=== PATIENT | male | born 1965 | race Two or more races ===

== ENCOUNTER → 2017-11-23 | Emergency (ER) | payer OTHER ==
[~2017-11-23] VITALS: Ht 172.7 cm; Wt 98.9 kg
[~2017-11-23] MED LIST: COZAAR50 MG; NORVASC5 MG
== END | disposition home or self-care (01) ==
LOC: ER 09:36
DX: J00 Acute nasopharyngitis [common cold] (principal)

== ENCOUNTER 2018-12-15 16:59 | Emergency (ER) | payer OTHER ==
[~2018-12-15] VITALS: Ht 172.7 cm; Wt 99.8 kg
[2018-12-15] MEDS ORDERED: GLYBURIDE2.5 MG (17:15)
[2018-12-15] MEDS ORDERED: COZAAR25 MG (17:15)
== END 2018-12-15 21:10 | disposition home or self-care (01) ==
LOC: ER 16:59
DX: L08.89 Other specified local infections of the skin and subcutaneous tissue (principal)

== ENCOUNTER 2019-08-12 17:00 | Emergency (ER) | payer OTHER ==
[~2019-08-12] VITALS: Ht 162.6 cm; Wt 101.2 kg
[~2019-08-12 17:00] MED LIST changes: +COZAAR25 MG; +GLYBURIDE2.5 MG
== END 2019-08-13 02:15 | disposition home or self-care (01) ==
LOC: ER 17:00
DX: K52.9 Noninfective gastroenteritis and colitis, unspecified (principal); E86.0 Dehydration

== ENCOUNTER 2023-12-28 13:54 | Emergency (ER) | payer OTHER ==
[~2023-12-28] VITALS: Ht 154.9 cm; Wt 97.5 kg
[2023-12-28] MEDS ORDERED: KETOROLAC TROMETHAMINE 30 MG VIAL IM STA (15:49)
[2023-12-28] MEDS ORDERED: NAPROXEN500 MG PO (18:00)
== END 2023-12-28 18:12 | disposition home or self-care (01) ==
LOC: ER 13:54
DX: S29.011A Strain of muscle and tendon of front wall of thorax, initial encounter (principal); X58.XXXA Exposure to other specified factors, initial encounter; Y93.89 Activity, other specified; Y92.89 Other specified places as the place of occurrence of the external cause; Y99.8 Other external cause status; R53.81 Other malaise; I10 Essential (primary) hypertension; E11.9 Type 2 diabetes mellitus without complications; Z88.0 Allergy status to penicillin

== ENCOUNTER 2024-07-22 11:28 | Inpatient (IN) | payer OTHER ==
[~2024-07-22] VITALS: Ht 172.7 cm; Wt 97.5 kg
[~2024-07-22 11:28] MED LIST changes: +LIPITOR40 M1; +NAPROXEN500 MG PO
[2024-07-22] MEDS ORDERED: FUROsemide 40 MG/4 ML VIAL IV ONE (12:15)
[2024-07-22 12:19] LABS: HEMATOCRIT 33.6 % (39.0-48.0); HEMOGLOBIN 10.9 g/dL (13-16.00); MEAN CORPUSCULAR HEMOGLOBIN 26.4 pg (27.00-32.0); MEAN CORPUSCULAR HGB CONC 32.5 g/dl (32.0-36.0); RED BLOOD COUNT 4.15 M/uL (4.00-6.00)
[2024-07-22 12:21] LABS: PLATELET COUNT 63 K/uL (150-450); RED CELL DISTRIBUTION WIDTH 19.1 % (11.5-14.5)
[2024-07-22 12:29] LABS: INR 1.13; PARTIAL THROMBOPLASTIN TIME 26.1 SECONDS (22.0-34.0); PROTHROMBIN TIME 12.2 SECONDS (9.0-11.5)
[2024-07-22 12:57] LABS: ALBUMIN 3.3 gm/dL (3.4-5.0); BILIRUBIN TOTAL 0.53 mg/dL (0.3-1.2); CALCIUM 8.5 mg/dL (8.5-10.1); CREATININE SERUM 1.11 mg/dL (0.70-1.30); GFR 67.57; GLOBULINA 2.9 G/DL (2.4-3.5); POTASSIUM 4.07 mEq/L (3.5-5.1); TOTAL PROTEIN 6.2 gm/dL (6.4-8.2)
[2024-07-22 13:32] LABS: URINE APPEARANCE Clear; URINE BILIRRUBIN Negative (NEGATIVE); URINE BLOOD Negative; URINE COLOR Yellow; URINE GLUCOSE Negative (NEGATIVE); URINE KETONE Negative (NEGATIVE); URINE LEUKOCYTE Negative; URINE NITRATE Negative
[2024-07-22 13:37] LABS: URINE WBC 22.3 uL (0.0-23.2)
[2024-07-22 13:45] LABS: URINE CAST 0.15 uL (0.0-1.40); URINE EPITHELIAL CELLS 0.7 uL (0.0-38.8); URINE PROTEIN 100 (NEGATIVE); URINE RBC 1.9 uL (0.0-20.8)
[2024-07-22] MEDS ORDERED: INSULIN LISPRO 1,000 UNIT/10 ML UNITS SUBCUTANEO PRN (18:15)
[2024-07-22] MEDS ORDERED: NITROGLYCERIN IN 5 % DEXTROSE 50 MG/250 ML BOTTLE IV SCH (18:15)
[2024-07-22] MEDS ORDERED: DEXTROSE 50 % IN WATER 0.5 G/ML DISP.SYRIN IV PRN (18:15)
[2024-07-22] MEDS ORDERED: NITROGLYCERIN IN 5 % DEXTROSE 50 MG/250 ML BOTTLE IV ONE (19:40)
[2024-07-22] MEDS ORDERED: FUROsemide 20 MG/2 ML VIAL ONE (20:44)
[2024-07-22] MEDS ORDERED: FUROsemide 20 MG/2 ML VIAL IV SCH ×2 (21:00)
[2024-07-22 21:52] VITALS: O2SAT 97
[2024-07-23] VITALS (9 sets, daily range): BP systolic 125–151; BP diastolic 86–100; O2SAT 93–100
[2024-07-23] MEDS ORDERED: TAMSULOSIN HCL 0.4 MG CAP PO SCH (09:00)
[2024-07-23] MEDS ORDERED: SPIRONOLACTONE 25 MG TABLET PO SCH (09:00)
[2024-07-23] MEDS ORDERED: LOSARTAN POTASSIUM 25 MG TABLET PO SCH (09:00)
[2024-07-23] MEDS ORDERED: ATORVASTATIN CALCIUM 40 MG TABLET PO SCH (09:00)
[2024-07-23] MEDS ORDERED: AMLODIPINE BESYLATE 5 MG TABLET PO SCH (09:00)
[2024-07-23] MEDS ORDERED: ASPIRIN 81 MG TABLET.EC PO SCH (09:00)
[2024-07-23] MEDS ORDERED: AMIODARONE HCL 200 MG TABLET PO SCH (09:00)
[2024-07-23] MEDS ORDERED: FAMOtidine 20 MG TABLET PO SCH (09:00)
[2024-07-23 10:52] LABS: HEMATOCRIT 34.7 % (39.0-48.0); HEMOGLOBIN 11.2 g/dL (13-16.00); MEAN CELL VOLUME 81.6 fL (80.0-100.00); MEAN CORPUSCULAR HEMOGLOBIN 26.3 pg (27.00-32.0); MEAN CORPUSCULAR HGB CONC 32.2 g/dl (32.0-36.0); PLATELET COUNT 60 K/uL (150-450); RED BLOOD COUNT 4.25 M/uL (4.00-6.00); RED CELL DISTRIBUTION WIDTH 19.1 % (11.5-14.5)
[2024-07-23] MEDS ORDERED: SPIRONOLACTONE 25 MG TABLET PO NR (11:00)
[2024-07-23 11:13] LABS: ALBUMIN 3.3 gm/dL (3.4-5.0); BILIRUBIN TOTAL 0.59 mg/dL (0.3-1.2); CALCIUM 8.5 mg/dL (8.5-10.1); CREATININE SERUM 1.02 mg/dL (0.70-1.30); GFR 74.5; GLOBULINA 2.8 G/DL (2.4-3.5); POTASSIUM 4.06 mEq/L (3.5-5.1); TOTAL PROTEIN 6.1 gm/dL (6.4-8.2)
[2024-07-23] MEDS ORDERED: FUROsemide 20 MG/2 ML VIAL IV SCH (17:00)
[2024-07-24] VITALS (8 sets, daily range): BP systolic 132–144; BP diastolic 85–88; O2SAT 93–98
[2024-07-24] MEDS ORDERED: CLOPIDOGREL BISULFATE 75 MG TABLET PO SCH (09:00)
[2024-07-24] MEDS ORDERED: LOSARTAN POTASSIUM 50 MG TABLET PO SCH (09:00)
[2024-07-24] MEDS ORDERED: AMIODARONE HCL 200 MG TABLET PO SCH (09:00)
[2024-07-24] MEDS ORDERED: AMINO ACIDS 1 EACH TABLET PO SCH (17:00)
[2024-07-25] VITALS (8 sets, daily range): BP systolic 132–146; BP diastolic 82–88; O2SAT 96–100
[2024-07-26] VITALS (8 sets, daily range): BP systolic 107–150; BP diastolic 70–92; O2SAT 90–100
[2024-07-26 08:47] LABS: HEMATOCRIT 30.4 % (39.0-48.0); HEMOGLOBIN 10.2 g/dL (13-16.00); MEAN CELL VOLUME 80.6 fL (80.0-100.00); MEAN CORPUSCULAR HEMOGLOBIN 27.1 pg (27.00-32.0); MEAN CORPUSCULAR HGB CONC 33.6 g/dl (32.0-36.0); RED BLOOD COUNT 3.77 M/uL (4.00-6.00)
[2024-07-26 09:05] LABS: PLATELET COUNT 50 K/uL (150-450)
[2024-07-26 09:22] LABS: BILIRUBIN TOTAL 0.64 mg/dL (0.3-1.2); CALCIUM 8.4 mg/dL (8.5-10.1); CREATININE SERUM 0.98 mg/dL (0.70-1.30); GFR 78.02; GLOBULINA 2.6 G/DL (2.4-3.5); POTASSIUM 4.04 mEq/L (3.5-5.1); TOTAL PROTEIN 5.6 gm/dL (6.4-8.2)
== END 2024-07-26 17:52 | disposition home or self-care (01) | DRG 291 ==
LOC: ER 11:29 → MEDJ 18:39
PROVIDERS: General Practice; ADMIT Internal Medicine; ATTEND Internal Medicine
PROC: 4A12X4Z Monitoring of Cardiac Electrical Activity, External Approach (ICD-10-PCS; principal; 2024-07-22)
PROC: B246ZZZ Ultrasonography of Right and Left Heart (ICD-10-PCS; 2024-07-22)
PROC: B54DZZZ Ultrasonography of Bilateral Lower Extremity Veins (ICD-10-PCS; 2024-07-24)
DX: I11.0 Hypertensive heart disease with heart failure (principal); I50.23 Acute on chronic systolic (congestive) heart failure; C85.90 Non-Hodgkin lymphoma, unspecified, unspecified site; I25.10 Atherosclerotic heart disease of native coronary artery without angina pectoris; D69.6 Thrombocytopenia, unspecified; E87.70 Fluid overload, unspecified; I87.2 Venous insufficiency (chronic) (peripheral); R60.0 Localized edema; Z95.1 Presence of aortocoronary bypass graft; Z95.818 Presence of other cardiac implants and grafts

== ENCOUNTER 2025-03-15 16:05 | Inpatient (IN) | payer OTHER ==
[~2025-03-15] VITALS: Ht 172.7 cm; Wt 94.3 kg
--- NOTE | 2025-03-15 18:21 | NUR ---
PTE ALERTA Y ORIENTADO X3 QUIEN REFIERE VENIR POR EDEMA EN TALIB CARSON
[2025-03-15 19:37] LABS: HEMATOCRIT 38.6 % (39.0-48.0); HEMOGLOBIN 13.3 g/dL (13-16.00); MEAN CELL VOLUME 81.8 fL (80.0-100.00); MEAN CORPUSCULAR HEMOGLOBIN 28.1 pg (27.00-32.0); MEAN CORPUSCULAR HGB CONC 34.4 g/dl (32.0-36.0); RED BLOOD COUNT 4.72 M/uL (4.00-6.00); RED CELL DISTRIBUTION WIDTH 14.7 % (11.5-14.5)
[2025-03-15 19:39] LABS: PLATELET COUNT 93 K/uL (150-450)
--- NOTE | 2025-03-15 19:51 | NUR ---
SE EDUCA A PTE SOBRE TX MEDICO, SE JOSE DANIEL MUESTRAS DE LABORATORIO UTILIZANDO MEDIDAS ASEPTICAS. SE COLOCA H/L BRAYAN DE EDEMA. SE ADMINISTRA MEDCIAMENTO RONDA ORDEN MEDICA. SE NOTIFICA ESTUDIO DE DOPPLER.
[2025-03-15 19:53] LABS: ALBUMIN 3.9 gm/dL (3.4-5.0); BILIRUBIN TOTAL 0.54 mg/dL (0.3-1.2); CALCIUM 8.9 mg/dL (8.5-10.1); CREATININE SERUM 1.02 mg/dL (0.70-1.30); GFR 74.25; GLOBULINA 3.9 G/DL (2.4-3.5); POTASSIUM 3.96 mEq/L (3.5-5.1); TOTAL PROTEIN 7.8 gm/dL (6.4-8.2)
[2025-03-15] MEDS ORDERED: KETOROLAC TROMETHAMINE 30 MG VIAL IV ONE (20:00)
[2025-03-15] MEDS ORDERED: KETOROLAC TROMETHAMINE 30 MG VIAL ONE (20:03)
[2025-03-15 20:13] LABS: D DIMER 0.26 MG/L; PARTIAL THROMBOPLASTIN TIME 27.5 SECONDS (22.0-34.0)
[2025-03-15 20:27] LABS: INR 1.05; PROTHROMBIN TIME 11.4 SECONDS (9.0-11.5)
[2025-03-15] MEDS ORDERED: ENOXAPARIN SODIUM 60 MG/0.6 ML SYRINGE SUBCUTANEO ONE ×2 (23:30→23:48)
[2025-03-16] MEDS ORDERED: ACETAMINOPHEN 500 MG GEL..CAP PO ONE ×2 (11:00)
[2025-03-16] MEDS ORDERED: VANCOMYCIN HCL 1,000 MG VIAL IV ONE (11:00)
[2025-03-16] MEDS ORDERED: VANCOMYCIN HCL 1,000 MG VIAL ONE (11:00)
[2025-03-16] MEDS ORDERED: 0.9 % SODIUM CHLORIDE 1,000 ML IV SCH (18:15)
[2025-03-16] MEDS ORDERED: AMLODIPINE BESYLATE 5 MG TABLET PO SCH (18:21)
[2025-03-16] MEDS ORDERED: levoFLOXacin IN DEXTROSE 5 % 150 ML IV SCH (18:21)
[2025-03-16] MEDS ORDERED: LOSARTAN POTASSIUM 25 MG TABLET PO SCH (18:22)
[2025-03-16] MEDS ORDERED: ATORVASTATIN CALCIUM 20 MG TABLET PO SCH (18:22)
[2025-03-16] MEDS ORDERED: MORPHINE SULFATE 4 MG/ML CARTRIDGE IV PRN (18:30)
[2025-03-16] MEDS ORDERED: ACETAMINOPHEN 500 MG GEL..CAP PO PRN (18:30)
[2025-03-16] MEDS ORDERED: ATORVASTATIN CALCIUM 40 MG TABLET PO SCH (18:37)
[2025-03-16] MEDS ORDERED: levoFLOXacin IN DEXTROSE 5 % 5 MG/ML PIGGYBAG IV ONE (19:19)
[2025-03-16 19:37] LABS: INR 1.06; PARTIAL THROMBOPLASTIN TIME 30.3 SECONDS (22.0-34.0); PROTHROMBIN TIME 11.5 SECONDS (9.0-11.5)
[2025-03-16 19:54] LABS: URINE APPEARANCE Clear; URINE BILIRRUBIN Negative (NEGATIVE); URINE BLOOD Negative; URINE COLOR Yellow; URINE KETONE Trace (NEGATIVE); URINE LEUKOCYTE Negative; URINE NITRATE Negative
[2025-03-16 19:56] VITALS: BP 117/76; O2SAT 97
[2025-03-16 19:58] LABS: URINE EPITHELIAL CELLS 1.7 uL (0.0-38.8); URINE RBC 11.9 uL (0.0-20.8)
[2025-03-16 20:08] LABS: COVID-19 AG NEGATIVE (NEGATIVE)
[2025-03-16 20:27] LABS: URINE BACTERIA 3.6 uL (0.0-1933); URINE CAST 0.14 uL (0.0-1.40); URINE GLUCOSE 100 MG/DL (NEGATIVE); URINE PROTEIN 100 (NEGATIVE); URINE WBC 1.5 uL (0.0-23.2)
[2025-03-17 00:35] VITALS: BP 132/82; O2SAT 98
[2025-03-17 07:58] VITALS: BP 122/77
[2025-03-17] MEDS ORDERED: PANTOPRAZOLE SODIUM 40 MG/VIAL VIAL IV SCH (09:00)
[2025-03-17] MEDS ORDERED: EMOLLIENTS 6 OZ BOTTLE TOP SCH (17:00)
[2025-03-17] MEDS ORDERED: CEFTRIAXONE SODIUM 2,000 MG in 0.9 % SODIUM CHLORIDE 100 ML IV SCH (17:00)
[2025-03-17 18:24] VITALS: BP 146/85; O2SAT 98
[2025-03-18 00:45] VITALS: BP 136/80; O2SAT 99
[2025-03-18 08:15] VITALS: BP 146/86
[2025-03-18 18:42] VITALS: BP 155/85; O2SAT 97
[2025-03-19 01:11] VITALS: BP 138/84; O2SAT 97
[2025-03-19 08:17] VITALS: BP 151/99; O2SAT 99
[2025-03-19] MEDS ORDERED: MORPHINE SULFATE 2 MG/ML CARTRIDGE IV PRN (13:00)
[2025-03-19 16:53] VITALS: BP 159/97
[2025-03-20 02:19] VITALS: BP 127/82; O2SAT 96
[2025-03-20 08:08] VITALS: BP 139/88
[2025-03-20] MEDS ORDERED: PANTOPRAZOLE SODIUM 40 MG TABLET.DR PO SCH (09:00)
[2025-03-20] MEDS ORDERED: TRAMADOL HCL 50 MG TABLET PO SCH (10:49)
[2025-03-20 17:00] VITALS: BP 139/89
[2025-03-20] MEDS ORDERED: ACETAMINOPHEN 500 MG GEL..CAP PO SCH (17:00)
[2025-03-21 01:27] VITALS: BP 136/92; O2SAT 98
[2025-03-21 08:16] VITALS: BP 136/89; O2SAT 98
[2025-03-21 15:00] VITALS: BP 134/90; O2SAT 99
== END 2025-03-21 15:52 | disposition home or self-care (01) | DRG 603 ==
LOC: ER 16:05 → MEDJ 03-16 18:30
PROVIDERS: General Practice; ADMIT Internal Medicine; ATTEND Internal Medicine
PROC: B54BZZZ Ultrasonography of Right Lower Extremity Veins (ICD-10-PCS; 2025-03-15)
PROC: B44GZZZ Ultrasonography of Left Lower Extremity Arteries (ICD-10-PCS; principal; 2025-03-16)
DX: L03.115 Cellulitis of right lower limb (principal); D69.6 Thrombocytopenia, unspecified; Z95.1 Presence of aortocoronary bypass graft; E11.9 Type 2 diabetes mellitus without complications; Z79.4 Long term (current) use of insulin; I87.2 Venous insufficiency (chronic) (peripheral); I83.91 Asymptomatic varicose veins of right lower extremity; Z85.6 Personal history of leukemia

== ENCOUNTER 2025-06-29 15:06 | Emergency (ER) | payer OTHER ==
[~2025-06-29] VITALS: Ht 172.7 cm; Wt 95.3 kg
[2025-06-29] MEDS ORDERED: 0.9 % SODIUM CHLORIDE 1,000 ML IV STA (16:39)
[2025-06-29] MEDS ORDERED: CLINDAMYCIN PHOSPHATE 150 MG/ML (600mg) IV STA (16:40)
[2025-06-29 16:57] LABS: BASO % 0.8 % (0.1-1.2); EOS # 0.07 (0.04-0.54); EOS % 2.7 % (0.7-7.0); LYMPH # 0.58 (1.18-3.74); LYMPH % 22.5 % (19.3-53.1); MEAN PLATELET VOLUME 10.50 fl (9.4-12.4); MONO # 0.66 (0.24-0.82); NEUT # 1.21 (1.56-6.13); NEUT % 46.8 % (34.0-71.1); RED CELL DISTRIBUTION WIDTH 13.2 % (11.6-14.4)
[2025-06-29 17:32] LABS: BASOPHIL MAN 2.0 %; EOSINOPHIL MAN 2.0 %; LYMPHOCYTE MAN 20.0 %; MONO % 25.6 % (4.7-12.5); MONOCYTE MAN 21.0 %; NEUTROPHILS MAN 52.0 %
[2025-06-29 17:39] LABS: D DIMER < 0.19 MG/L
[2025-06-29 17:42] LABS: BUN CREA RATIO 24.0 (7.0-25.0); CREATININE SERUM 0.85 mg/dL (0.70-1.30); GFR 91.63; GLUCOSE FASTING 193.0 mg/dL (65-100); OSMOLALITY SERUM 289.0 MOSM/KG (275-295)
[2025-06-29 18:01] LABS: URINE APPEARANCE Clear; URINE BILIRRUBIN Negative (NEGATIVE); URINE BLOOD Negative; URINE COLOR Yellow; URINE GLUCOSE Negative (NEGATIVE); URINE KETONE Negative (NEGATIVE); URINE LEUKOCYTE Negative; URINE NITRATE Negative; URINE PROTEIN Trace (NEGATIVE); URINE UROBILINOGEN 1.0 E.U./dl
[2025-06-29 18:06] LABS: URINE BACTERIA 3.6 uL (0.0-1933); URINE CAST 0.00 uL (0.0-1.40); URINE EPITHELIAL CELLS 0.7 uL (0.0-38.8); URINE RBC 2.3 uL (0.0-20.8); URINE WBC 1.0 uL (0.0-23.2)
[2025-06-29 18:23] LABS: INR 1.06
[2025-06-29] MEDS ORDERED: CLEOCIN HCL300 MG PO (19:17)
== END 2025-06-29 21:00 | disposition home or self-care (01) ==
LOC: ER 15:06
PROVIDERS: Emergency Medicine
DX: L03.115 Cellulitis of right lower limb (principal); E11.9 Type 2 diabetes mellitus without complications; Z79.84 Long term (current) use of oral hypoglycemic drugs; I10 Essential (primary) hypertension; Z88.0 Allergy status to penicillin